=== PATIENT | male | born 1960 | race Caucasian/White ===

== ENCOUNTER 2017-05-22 06:18 | Day surgery (SDC) | payer OTHER ==
[~2017-05-22] VITALS: Ht 182.9 cm; Wt 94.0 kg
[~2017-05-22 06:18] MED LIST: ASPI81TA82 PO; CARV12.52 PO; LORTA10 PO; RAMI5CAP36 PO; SPIR25TA PO; TAMS0.4C67 PO; XARE10TA PO; Z.0.WHEELELR
[2017-05-22] MEDS ORDERED: GABA300C5 PO (06:35)
[2017-05-22] MEDS ORDERED: CORE25TA PO (06:35)
[2017-05-22] MEDS ORDERED: ASPI81CH CHEW (06:35)
[2017-05-22] MEDS ORDERED: SPIR25TA PO (06:35)
[2017-05-22] MEDS ORDERED: RAMI5CAP PO (06:35)
[2017-05-22 06:43] VITALS: BP 161/110; PULSE 98; RESP 16; TEMP 97.9; O2SAT 95
[2017-05-22] MEDS ORDERED: Hold AM Insulin & AM Hypoglycemic medications in diabetic patients PRN (06:45)
[2017-05-22] MEDS ORDERED: NO Heparin, Lovenox, Coumadin at least 12 hours prior to procedure. PRN (06:45)
[2017-05-22] MEDS ORDERED: NS 1000 ML IV SCH (06:45)
[2017-05-22] MEDS ORDERED: VANCOMYCIN 1000 MG/NS 250 ML IV SCH ×2 (06:45)
[2017-05-22] MEDS ORDERED: SODIUM CHLORID 0.9% 500 ML IV PRN (06:45)
[2017-05-22] MEDS ORDERED: POVIDONE IODINE 5% (ANTISEPSIS KIT) 4 APPLICATIONS EACH NARE PRN (06:45)
[2017-05-22] MEDS ORDERED: ceFAZolin 2 GM PREMIX 50 ML IV SCH (06:45)
[2017-05-22] MEDS ORDERED: MUPIROCIN 2% OINT 1 APPLIC/GM SYR NASAL SCH (06:45)
[2017-05-22] MEDS ORDERED: INSULIN HUMAN REGULAR 1,000 UNITS/10 ML VIAL SQ PRN (06:45)
[2017-05-22] MEDS ORDERED: METOPROLOL TARTRATE 25 MG TAB PO PRN (06:45)
[2017-05-22] MEDS ORDERED: CHLORHEXIDINE GLUCONATE 2 % 1 PACK (2 CLOTHS) TOPICAL SCH (06:45)
[2017-05-22] MEDS ORDERED: CHLORHEXIDINE GLUCONATE 2 % 1 PACK (2 CLOTHS) TOPICAL PRN (06:45)
[2017-05-22] MEDS ORDERED: LACTATED RINGER'S 1000 ML IV PRN (06:45)
[2017-05-22] MEDS ORDERED: LORazepam 1 MG TAB SL SCH (06:45)
[2017-05-22] MEDS ORDERED: POVIDONE IODINE 5% (ANTISEPSIS KIT) 4 APPLICATIONS EACH NARE SCH (06:45)
[2017-05-22 07:06] LABS: AUTOMATED NEUTROPHIL # 3.4 TH/MM3 (1.8-7.7); BASOPHIL % 0.8 % (0.0-2.0); EOSINOPHIL # 0.2 TH/MM3 (0-0.4); HEMATOCRIT 47.3 % (39.0-51.0); HEMO FLAGS DIFF FINAL; LYMPH % 20.5 % (9.0-44.0); MEAN CELL VOLUME 100.6 FL (80.0-100.0); MEAN CORPUSCULAR HEMOGLOBIN 34.5 PG (27.0-34.0); MEAN CORPUSCULAR HGB CONC 34.2 % (32.0-36.0); MONO % 8.1 % (0.0-8.0); NEUT % 67.6 % (16.0-70.0); PLATELET COUNT 161 TH/MM3 (150-450); RED CELL DISTRIBUTION WIDTH 14.8 % (11.6-17.2); WHITE BLOOD COUNT 5.1 TH/MM3 (4.0-11.0)
[2017-05-22 07:11] LABS: APTT (PATIENT) 29.2 SEC (24.3-30.1); INTERNATIONAL NORMALIZED RATIO 0.9 RATIO; PROTHROMBIN TIME - PATIENT 9.7 SEC (9.8-11.6)
[2017-05-22 07:18] LABS: BICARBONATE 26.2 MEQ/L (21.0-32.0)
[2017-05-22] MEDS ORDERED: MIDAZOLAM HCL 2 MG/2 ML VIAL ONE ×2 (07:34→07:49)
[2017-05-22] MEDS ORDERED: FAMOTIDINE 20 MG/2 ML VIAL ONE (07:34)
[2017-05-22] MEDS ORDERED: LIDOCAINE HCL 2% 50 ML VIAL ONE (07:45)
[2017-05-22] MEDS ORDERED: VANCOMYCIN 500 MG VIAL ONE (07:45)
[2017-05-22] MEDS ORDERED: HYDR-3366 PO (08:36)
[2017-05-22] MEDS ORDERED: CEPH-460 PO (08:36)
--- NOTE | 2017-05-22 08:43 | CATHPROC ---
[employer] HIS Report Study Information Study Number Admission Scheduled Start Study Start [id number] May 22 2017 6:18AM 05/22/2017 May 22 2017 7:56AM [place] Service Cardiac Pacer/ICD Admit Source Facility Department Other [facility] - Assistant Professor Of Business Physician and Clinical Staff Initial Devon Rea Diagnostic Assistant Maite Tamayo,RT(R) TECH2 Other Anesthesia, MECHANICAL RELIABILITY ENGINEER Other Sree San RCIS(BS) Recorder Candice Garcia,BAILEY Scrub Oumar Hickman,RT(R) Equipment Time Casual Shoe Inspector Description Size Mfg Part Number Used/Scraped 08:24 BIOTRONIK DEFIBRILLATOR, [email or web address] 7 HF-T [id number] Used DERMABOND, ADHESIVE SKIN [id number] 08:00 CORDIS/PACER * Used GLUE MINI *[id number] 08:00 [employer] INDUSTRIES SUTURE, STRIP PLUS 1/2" * Used *[id number] 08:00 MEDLINE PACER GREEN, LIMB * 2530 *[id number] Used [id number] 08:00 MEDLINE PACER PACK, PACER CUSTOM * Used *[id number] 08:28 Needle Sponge Count 1 111 Used 08:27 Needle Sponge Count 1 1 Used 08:28 Needle Sponge Count 25 1 Used SUTURE, 0 ETHIBOND [CT1] ([id number]), 8pk SUTURE, 2-0 VICRYL [CT1] ([id number]) SUTURE, 2-0 VICRYL [CT1] ([id number]) [id number] 08:00 [employer],WARM AIR CCL * Used *[id number] [facility] PAD, ELECTROSURGICAL 08:00 * [id number] *[id number] Used SURGICAL GROUNDING ORANGE 08:05 VITATRON MEDTRONIC PLASMABLADE, PEAD 3.0S * [id number] Used [id number] 08:00 [employer]. ELECTRODE, PRO-PADZ BIPHASIC * Used *[id number] Equipment Model, Serial, Lot Number and Expiration Data Description Model Number Serial Number Lot Number Expiration Da te DEFIBRILLATOR, KIERRA 7 HF-T [id number] 08-10-2017 Medication Medication Total Dose (Bolus/Oral) Medication Total Dosage/Unit 2% XYLOCAINE 50 mL Medications (Bolus/Oral) Medication Time Given Dosage/Unit Administered By Reason 2% XYLOCAINE 05/22/2017 8:12:56 AM 50 mL Devon Nunn 50 mL 2% XYLOCAINE given in lab by Devon Nunn in Left shoulder via Subcutaneous. Ordered by Devon Nunn. LEFT UPPER CHEST Medication (Drip) Medication Time Given Dosage/Unit Concentration/Unit Diluent (ml) Solution ANCEF 05/22/2017 7:41:10 AM 2 g 2 g ANCEF given in lab by Anesthesia, MECHANICAL RELIABILITY ENGINEER via Peripheral IV. Ordered by Devon Nunn. VANCOMYCIN DRIP 05/22/2017 7:41:50 AM 1 g 1 g VANCOMYCIN DRIP given in lab by Anesthesia, MECHANICAL RELIABILITY ENGINEER via Peripheral IV. Ordered by Devon Nunn. Initial Case Assessment Cardiovascular HR Rhythm NIBP Chest Pain 88 SR W/ LBBB 159/99 0 Edema Present Skin color Skin None Normal Warm Dry Circulatory - Right Pulses Dorsalis Pedis 2 Scale (0,1,2,3,4,d) Circulatory - Left Pulses Dorsalis Pedis 2 Scale (0,1,2,3,4,d) Neurological State Oriented to time-place- Alert Moves all extremities person Respiration - General Respiration Rate SpO2 (%) (B/min) 18 98 Final Case Assessment Cardiovascular HR Rhythm NIBP Chest Pain 88 SR 126/88 0 Edema Present Skin color Skin None Normal Warm Dry Circulatory - Right Pulses Dorsalis Pedis 2 Scale (0,1,2,3,4,d) Circulatory - Left Pulses Dorsalis Pedis 2 Scale (0,1,2,3,4,d) Neurological State Oriented to time-place- Alert Moves all extremities person Respiration - General Respiration Rate SpO2 (%) O2 (lpm) (B/min) 18 95 4 Chronological Log Time Study Chronological Log 7:31:00 Patient arrived via Bed. 7:31:00 Anesthesia at bedside. Assumes care of patient. SEE RECORDS FOR ALL MEDS AND VITALS DURING CASE 7:31:15 Patient Name, D.O.B, / Armband Verified By R.N. Assessment: Initial Case, HR=88 BPM, Rhythm=SR W/ LBBB, JYUT=794/99 mmhg, Chest Pain=0, Edema=N one, Color=Normal, Skin = Warm, Dry Right Pulses: Mathew Ped=2 7:34:00 Left Pulses: Mathew Ped=2 Neurological: State=Alert, Ox3, KAUR Respiration: Resp=18 B/min, SpO2=98 % 7:35:00 A # 20 IV was noted in the Antecubital (left). Grade = 0 7:35:50 A # 20 IV was noted in the Antecubital (right). Grade = 0 7:40:00 Verbal Stimulation=2 Physical Stimulation=2 Airway=2 Respiration=2 TOTAL=8. (0=absent, 1=li mited, 2=present) 7:41:10 2 g ANCEF given in lab by Anesthesia, MECHANICAL RELIABILITY ENGINEER via Peripheral IV. Ordered by Devon Nunn. 7:41:50 1 g VANCOMYCIN DRIP given in lab by Anesthesia, MECHANICAL RELIABILITY ENGINEER via Peripheral IV. Ordered by Corin Nunn 7:42:00 Disposable Defibrillator Pads Placed On Patient. 7:42:00 Charelne Prominences Protected 7:45:00 Table restraints applied according to hospital policy 8:00:00 Left Upper Chest Prepped Times Two. 8:00:12 2% CHLORHEXIDINE GLUCONATE WASH AND NASAL SWIPE DONE PRIOR TO PROCEDURE. 8:00:30 Reference ECG taken 8:01:00 Bovie ground pad applied to: RIGHT THIGH First Sponge And Instrument Count Done by Devon Nunn. 8:01:00 Hypo's: 1, Sponges: 25, Bovie/scratch: 1 Sutures: 3, Blades: 1, Instruments: 26, Syveck Patches: ~SYVECK PATCH~ 8:03:00 paged 8:06:17 Patient has been NPO for More than 6Hrs. 8:06:22 Skin Breakdown- NONE PER PATIENT 8:08:50 MD responded Time Out. Correct patient, procedure, procedure equipment, site and side verified with physician present. Time 8:11:10 concurred by MD, individual staff and MECHANICAL RELIABILITY ENGINEER. Time Out #2 - Consents verified, patient in correct position, all results are labled and display ed, safety precautions 8:11:50 taken, antibiotics administered. Time out concurred by MD, individual staff and MECHANICAL RELIABILITY ENGINEER in procedur e 8:12:30 Case Start 50 mL 2% XYLOCAINE given in lab by Devon Nunn in Left shoulder via Subcutaneous. Ordered by Devon Porter. 8:12:56 LEFT UPPER CHEST 8:16:00 Surgical Incision Made. 8:16:02 A pocket was created at the L Upper Chest. 8:21:16 A device was explanted. 8:24:05 Pocket flushed with antibiotic solution 8:24:06 A DEFIBRILLATOR, IMPERIA 7 HF-T was connected and placed in the pocket. 8:24:50 Pocket flushed with antibiotic solution SECOND Sponge And Instrument Count Done by Devon Nunn. 8:26:37 Hypo's: 1, Sponges: 25, Bovie/scratch: 1 Sutures: 3, Blades: 1, Instruments: 26, Syveck Patches: ~SYVECK PATCH~ 8:28:27 The pocket was closed. 8:28:50 Case End 8:29:43 Steri-strips and a sterile dressing applied to site. Assessment: Final Case, HR=88 BPM, Rhythm=SR, WZGF=838/88 mmhg, Chest Pain=0, Edema=None, Color= Normal, Skin = Warm, Dry Right Pulses: Mathew Ped=2 8:30:50 Left Pulses: Mathew Ped=2 Neurological: State=Alert, Ox3, KAUR Respiration: Resp=18 B/min, SpO2=95 %, O2=4 lpm 8:30:52 No case complications noted. 8:30:53 Cine recording checked. 8:30:57 Bedside Report will be given. 8:30:58 Implantable Device card placed in patient's chart. 8:30:59 DOCU called. Spoke to MIGUEL 8:31:37 Implant Procedure was performed. 8:31:42 A Bivent ICD Implant . (Dual) GEN CHANGE First Sponge And Instrument Count Done by Devon Nunn. 8:35:20 Hypo's: 1, Sponges: 25, Bovie/scratch: 1 Sutures: 3, Blades: 1, Instruments: 26, Syveck Patches: ~SYVECK PATCH~ End Study - Contrast Media Used In Study Contrast Total Opened (mL) Total Used (mL) Total Wasted (mL) Unspecified 0 0 0 End Study - Radiation Exposure Fluoro Time (minutes) 0.0 End Study - Patient Disposition Complications Transferred To Interventional Outcome No Telemetry Bed successful
[2017-05-22] MEDS ORDERED: ACETAMINOPHEN/CODEINE 300 MG/30 MG TAB PO PRN ×2 (08:45)
[2017-05-22] MEDS ORDERED: PROPOFOL 200 MG/20 ML AMP IV ONE (09:35)
--- NOTE | 2017-05-22 09:48 | MP ---
cc: FABIO DAVIS M.D. DATE OF SURGERY 05/22/2017 PROCEDURE PERFORMED A biventricular pacer defibrillator removal, biventricular pacer defibrillator replacement. INDICATIONS Mr. Garcia is a 56-year-old gentleman with a history of congestive heart failure, cardiomyopathy, biventricular pacer/ defibrillator inserted on optimal medical management with a generator end of life referred for generator replacement and device testing. This is primary prevention. The risks, the nature and the benefit of the procedure are clearly stated to him. The risks include pneumothorax, cardiac perforation, stroke, need for open heart surgery and even . The patient understood and agreed to proceed. PROCEDURE After written informed consent was obtained, the patient was brought to the EP lab where he was prepped and draped in the usual sterile fashion. Conscious sedation was initiated and maintained throughout the procedure by anesthesiologist. Once sedation verified, the left infraclavicular area over the existing generator was anesthetized with 2% Xylocaine. Using #11 scalpel, a 3-cm incision was made over the existing generator. Dissection was then taken down to the fascial layer using Bovie cautery and blunt dissection. Once exposed, the generator was removed from the pocket. Scar tissue was removed around the lead, pocket was expanded. Pocket revision was performed. Then the lead was disconnected from the generator and tested. After adequate pacing and sensing thresholds were obtained, the pocket was copiously irrigated using antibiotic solution. The leads were connected to a new generator and placed into the pocket. I did proceed with wound closure. Device testing was not performed. The patient very difficult to sedate. The deep fascial layer was approximated with 2-0 Vicryl suture in a continuous fashion. The subcutaneous layer was approximated with 2-0 Vicryl suture in a continuous fashion. The subcuticular layer was approximated using 2-0 Vicryl suture in a continuous fashion. Dermabond adhesive was applied to the wound followed by a sterile pressure dressing. There was no complication. The patient tolerated the procedure. Blood loss minimal. 1. Explanted Hardware: The explanted biventricular pacer defibrillator is a Biotronik model number Lumax 540, serial number [id number]. 2. Implanted Hardware: The implanted biventricular pacer defibrillator is a Biotronik model number 346141, serial number [id number]. 3. Threshold: The right atrial pacing in the bipolar mode was 0.9 volts at 0.4 milliseconds. Lead impedance 180 ohms with P-wave at 3.2 mV. The right ventricular pacing threshold in the bipolar mode was at 0.8 volts at 0.4 milliseconds. Lead impedance 520 ohms, R-wave at 6.4 mV. The left ventricular pacing threshold in the bipolar mode was 1.4-0.4 milliseconds, lead impedance 105 ohms. 4. Settings: The device was set in a DDD 60 upper rate limit 120 beats per minute. LV first by 40 milliseconds, defibrillatory portion for two zones one zone for ventricular tachycardia between 170-250 beats per minute. Initial therapy consists of two bursts of ATP, followed by 20, then 30 and all subsequent shocks at 40 defibrillatory shock. Second zone for ventricular fibrillation above 250 beats per minute first therapy at 30 and all subsequent shocks at 40 defibrillatory shock. CONCLUSION Successful biventricular pacer/defibrillator removal, biventricular pacer defibrillator replacement. COMMENT AND RECOMMENDATIONS The patient is going to be transferred to the recovery room. He will be observed and when stable can be discharged home. MD ORLANDO Borja/RADHA /8:34 AM /9:42 AM
--- NOTE | 2017-05-22 09:57 | EKG ---
Date Performed: 05/22/2017 Time Performed: 07:23:12 PTAGE: 56 years EKG: Sinus rhythm Ventricular pacing. Pacemaker rhythm - no further analysis Abnormal ECG PREVIOUS TRACING : 07/27/2014 04.38 Compared to prior tracing no significant change DOCTOR: Ashley Mittal Interpretating Date/Time 05/22/2017 09:56:41
== END 2017-05-22 09:42 | disposition home or self-care (01) ==
LOC: HDIC 06:18 → HDOC 06:18
PROVIDERS: ATTEND Internal Medicine Interventional Cardiology
DX: Z45.02 Encounter for adjustment and management of automatic implantable cardiac defibrillator (principal); I50.20 Unspecified systolic (congestive) heart failure; I44.7 Left bundle-branch block, unspecified; I42.0 Dilated cardiomyopathy; R42 Dizziness and giddiness; I47.2 Ventricular tachycardia; R06.00 Dyspnea, unspecified; Z79.82 Long term (current) use of aspirin
CPT/HCPCS: 00530; 33264; 80048; 85025; 85610; 85730; 86850; 86900; 86901; 93005; C1882; J2250; J3010; J3370; J7030

== ENCOUNTER 2017-08-06 16:36 | Inpatient (IN) | payer OTHER, MEDICARE ==
[~2017-08-06] VITALS: Ht 182.9 cm; Wt 85.0 kg
[~2017-08-06 16:36] MED LIST changes: +ASPI81CH CHEW; -ASPI81TA82 PO; -CARV12.52 PO; +CEPH-460 PO; +CORE25TA PO; +GABA300C5 PO; +HYDR-3366 PO; -LORTA10 PO; +RAMI5CAP PO; -RAMI5CAP36 PO; -TAMS0.4C67 PO; -XARE10TA PO; -Z.0.WHEELELR
[2017-08-06 16:40] VITALS: BP 164/93; PULSE 90; RESP 18; TEMP 98.2; O2SAT 98
--- NOTE | 2017-08-06 16:44 | PD ---
Physical Exam Time Seen by Provider: 16:42 Narrative 56-year-old male requesting detox for alcohol. Last drink 3 hours ago. He gave his his hand gun last night because was having thoughts of suicide. Denies current thoughts of suicide. Denies illicit drug use. Patient seen in triage. Vital signs reviewed. Patient taken to medical bed. Data Data Last Documented VS Vital Signs Date Time Temp Pulse Resp B/P (MAP) Pulse Ox O2 Delivery O2 Flow Rate FiO2 08/06/17 16:40 98.2 90 18 164/93 (116) 98 MDM Supervised Visit with VALDEZ: Kassandra Bah Aug 06, 2017 16:44
--- NOTE | 2017-08-06 16:57 | PD ---
HPI . Wants detox/suicide ideation Chief Complaint: Alcohol/Drug Intoxication Time Seen by Provider: 16:53 Travel History International Travel<30 days: No Contact w/Intl Traveler<30days: No Traveled to known affect area: No History of Present Illness HPI 56-year-old male with no significant past medical history other than alcohol abuse for over 30 something years here with request for detox. Patient also says that he's had some suicidal ideation over the past several weeks. He says that most recently had to get his gun to his , because he was thinking of harming himself. Today he says he is not necessarily suicidal, however he has thought about it in the past. He has no other complaints and just wants help for his drinking problems. PFSH Past Medical History Heart Rhythm Problems: Yes Cancer: No Cardiovascular Problems: Yes High Cholesterol: No Chest Pain: No Congestive Heart Failure: No Diabetes: No Endocrine: No Gastrointestinal Disorders: No Glaucoma: No Genitourinary: No Hepatitis: No Hiatal Hernia: No Hypertension: Yes Immune Disorder: No Musculoskeletal: Yes (PERTHES DISEASE (UNSURE WHICH FEMUR)) Neurologic: No Psychiatric: No Reproductive: No Respiratory: No Integumentary: No Thyroid Disease: No Past Surgical History Abdominal Surgery: Yes (HERNIA REPAIR) AICD: Yes Body Medical Devices: aicd 12/13/2011 Cardiac Surgery: Yes (AICD PLACEMENT) Pacemaker: No Thoracic Surgery: No Social History Alcohol Use: Yes Tobacco Use: No Substance Use: No Allergies-Medications (Allergen,Severity, Reaction): Coded Allergies: codeine (Unverified Allergy, Severe, 06/25/17) Reported Meds & Prescriptions Reported Meds & Active Scripts Active Keflex (Cephalexin) 500 Mg Capsule 500 Mg PO TID [place] (Hydrocodone-Acetaminophen) 10-325 Mg Tab 1 Tab PO Q6H PRN Reported Spironolactone 25 Mg Tab 25 Mg PO BIDPC Ramipril 5 Mg Cap 5 Mg PO DAILY Gabapentin 300 Mg Cap 300 Mg PO BID Coreg (Carvedilol) 25 Mg Tab 25 Mg PO BID Aspirin 81 Mg Chew 81 Mg CHEW DAILY Review of Systems General / Constitutional: No: Fever Eyes: No: Visual changes HENT: No: Headaches Cardiovascular: No: Chest Pain or Discomfort Respiratory: No: Shortness of Breath Gastrointestinal: No: Abdominal Pain Genitourinary: No: Dysuria Musculoskeletal: No: Pain Skin: No Rash Neurologic: No: Weakness Psychiatric: Positive: Suicidal Ideations, No: Depression Endocrine: No: Polydipsia Hematologic/Lymphatic: No: Easy Bruising Physical Exam Narrative GENERAL: AAO x 3, no acute distress, Well-nourished, well-developed patient. SKIN: Warm and dry. No visible rashes or bruising. HEAD: Normocephalic and atraumatic. EYES: No scleral icterus. No injection or drainage. EOM intact, PERRLA ENT: No nasal drainage noted. Mucous membranes pink. Airway patent. NECK: Supple, trachea midline. No JVD. CARDIOVASCULAR: Regular rate and rhythm without murmurs, gallops, or rubs. RESPIRATORY: Breath sounds equal bilaterally. No accessory muscle use. No rhonchi or rales. GASTROINTESTINAL: Abdomen soft, non-tender, nondistended. EXTREMITIES: No cyanosis or edema. BACK: No obvious deformity. NEURO: CN II-12 intact, lithographic press feeder strength normal b/l, UE and LE 5/5, no focal deficits PSYCH: AAO x 3, normal affect. Data Data Last Documented VS Vital Signs Date Time Temp Pulse Resp B/P (MAP) Pulse Ox O2 Delivery O2 Flow Rate FiO2 08/06/17 17:13 Room Air 08/06/17 16:40 98.2 90 18 164/93 (116) 98 Orders Orders Complete Blood Count With Diff (08/06/17 16:57) Comprehensive Metabolic Panel (08/06/17 16:57) Psych Screen (08/06/17 16:57) Drug Screen, Random Urine (08/06/17 16:57) Alcohol (Ethanol) (08/06/17 16:57) Labs Laboratory Tests Test 08/06/17 17:11 08/06/17 17:15 White Blood Count 4.5 TH/MM3 Red Blood Count 4.64 MIL/MM3 Hemoglobin 17.3 GM/DL Hematocrit 48.8 % Mean Corpuscular Volume 105.3 FL Mean Corpuscular Hemoglobin 37.3 PG Mean Corpuscular Hemoglobin Concent 35.5 % Red Cell Distribution Width 12.8 % Platelet Count 143 TH/MM3 Mean Platelet Volume 7.9 FL Neutrophils (%) (Auto) 60.2 % Lymphocytes (%) (Auto) 23.9 % Monocytes (%) (Auto) 11.2 % Eosinophils (%) (Auto) 3.4 % Basophils (%) (Auto) 1.3 % Neutrophils # (Auto) 2.7 TH/MM3 Lymphocytes # (Auto) 1.1 TH/MM3 Monocytes # (Auto) 0.5 TH/MM3 Eosinophils # (Auto) 0.2 TH/MM3 Basophils # (Auto) 0.1 TH/MM3 CBC Comment AUTO DIFF Differential Total Cells Counted 100 Neutrophils % (Manual) 73 % Lymphocytes % 13 % Monocytes % 7 % Eosinophils % 5 % Basophils % 2 % Neutrophils # (Manual) 3.3 TH/MM3 Differential Comment FINAL DIFF MANUAL Atypical Lymphocytes % Platelet Estimate LOW Platelet Morphology Comment NORMAL Blood Urea Nitrogen 8 MG/DL Creatinine 0.95 MG/DL Random Glucose 82 MG/DL Total Protein 7.4 GM/DL Albumin 4.1 GM/DL Calcium Level 8.2 MG/DL Alkaline Phosphatase 124 U/L Aspartate Amino Transf (AST/SGOT) 111 U/L Alanine Aminotransferase (ALT/SGPT) 93 U/L Total Bilirubin 0.6 MG/DL Sodium Level 139 MEQ/L Potassium Level 3.6 MEQ/L Chloride Level 106 MEQ/L Carbon Dioxide Level 23.4 MEQ/L Anion Gap 10 MEQ/L Estimat Glomerular Filtration Rate 82 ML/MIN Ethyl Alcohol Level 295 MG/DL Urine Opiates Screen NEG Urine Barbiturates Screen NEG Urine Amphetamines Screen NEG Urine Benzodiazepines Screen NEG Urine Cocaine Screen NEG Urine Cannabinoids Screen NEG MDM Medical Decision Making Medical Screen Exam Complete: Yes Emergency Medical Condition: Yes Medical Record Reviewed: Yes Differential Diagnosis suicide ideation, drug induced mood disorder, alcohol abuse, Narrative Course 56 yr old male here with c/o alcohol abuse problems and suicide ideation. I have ordered labs. If they are WNL, we will medically clear his for psych screen. Laboratory Tests Test 08/06/17 17:11 08/06/17 17:15 White Blood Count 4.5 TH/MM3 Red Blood Count 4.64 MIL/MM3 Hemoglobin 17.3 GM/DL Hematocrit 48.8 % Mean Corpuscular Volume 105.3 FL Mean Corpuscular Hemoglobin 37.3 PG Mean Corpuscular Hemoglobin Concent 35.5 % Red Cell Distribution Width 12.8 % Platelet Count 143 TH/MM3 Mean Platelet Volume 7.9 FL Neutrophils (%) (Auto) 60.2 % Lymphocytes (%) (Auto) 23.9 % Monocytes (%) (Auto) 11.2 % Eosinophils (%) (Auto) 3.4 % Basophils (%) (Auto) 1.3 % Neutrophils # (Auto) 2.7 TH/MM3 Lymphocytes # (Auto) 1.1 TH/MM3 Monocytes # (Auto) 0.5 TH/MM3 Eosinophils # (Auto) 0.2 TH/MM3 Basophils # (Auto) 0.1 TH/MM3 CBC Comment AUTO DIFF Differential Total Cells Counted 100 Neutrophils % (Manual) 73 % Lymphocytes % 13 % Monocytes % 7 % Eosinophils % 5 % Basophils % 2 % Neutrophils # (Manual) 3.3 TH/MM3 Differential Comment FINAL DIFF MANUAL Atypical Lymphocytes % Platelet Estimate LOW Platelet Morphology Comment NORMAL Blood Urea Nitrogen 8 MG/DL Creatinine 0.95 MG/DL Random Glucose 82 MG/DL Total Protein 7.4 GM/DL Albumin 4.1 GM/DL Calcium Level 8.2 MG/DL Alkaline Phosphatase 124 U/L Aspartate Amino Transf (AST/SGOT) 111 U/L Alanine Aminotransferase (ALT/SGPT) 93 U/L Total Bilirubin 0.6 MG/DL Sodium Level 139 MEQ/L Potassium Level 3.6 MEQ/L Chloride Level 106 MEQ/L Carbon Dioxide Level 23.4 MEQ/L Anion Gap 10 MEQ/L Estimat Glomerular Filtration Rate 82 ML/MIN Ethyl Alcohol Level 295 MG/DL Urine Opiates Screen NEG Urine Barbiturates Screen NEG Urine Amphetamines Screen NEG Urine Benzodiazepines Screen NEG Urine Cocaine Screen NEG Urine Cannabinoids Screen NEG labs reviewed. Patient will be cleared for psych screen. Diagnosis Primary Impression: Suicide ideation Condition: Stable Pippa Hernandez Aug 06, 2017 16:57
[2017-08-06 17:42] LABS: AUTOMATED NEUTROPHIL # 2.7 TH/MM3 (1.8-7.7); BASOPHIL # 0.1 TH/MM3 (0-0.2); BASOPHIL % 1.3 % (0.0-2.0); EOSINOPHIL # 0.2 TH/MM3 (0-0.4); EOSINOPHIL % 3.4 % (0.0-4.0); HEMATOCRIT 48.8 % (39.0-51.0); LYMPH % 23.9 % (9.0-44.0); LYMPHOCYTE # 1.1 TH/MM3 (1.0-4.8); MEAN CELL VOLUME 105.3 FL (80.0-100.0); MEAN CORPUSCULAR HEMOGLOBIN 37.3 PG (27.0-34.0); MEAN CORPUSCULAR HGB CONC 35.5 % (32.0-36.0); MONO % 11.2 % (0.0-8.0); NEUT % 60.2 % (16.0-70.0); PLATELET COUNT 143 TH/MM3 (150-450); RED BLOOD COUNT 4.64 MIL/MM3 (4.50-5.90); RED CELL DISTRIBUTION WIDTH 12.8 % (11.6-17.2); WHITE BLOOD COUNT 4.5 TH/MM3 (4.0-11.0)
[2017-08-06 17:52] LABS: ANION GAP 10 MEQ/L (5-15); AST (GOT) 111 U/L (15-37); BICARBONATE 23.4 MEQ/L (21.0-32.0); BLOOD UREA NITROGEN 8 MG/DL (7-18); CHLORIDE 106 MEQ/L (98-107); GLOMERULAR FILTRATION RATE 82 ML/MIN (>89); POTASSIUM 3.6 MEQ/L (3.5-5.1); SODIUM (NA) 139 MEQ/L (136-145)
[2017-08-06 17:53] LABS: ALT (GPT) 93 U/L (12-78)
[2017-08-06 17:54] LABS: HEMO FLAGS AUTO DIFF
[2017-08-06 17:56] LABS: ALKALINE PHOSPHATASE 124 U/L (45-117); TOTAL BILIRUBIN ADULT 0.6 MG/DL (0.2-1.0)
[2017-08-06 17:59] LABS: ALCOHOL 295 MG/DL (0-5)
[2017-08-06 18:52] LABS: BASOPHILS 2 % (0-2); EOSINOPHILS 5 % (0-4); NEUTROPHIL # MANUAL DIFF 3.3 TH/MM3 (1.8-7.7); POLYS (SEG NEUTROPHILS) 73 % (16-70); WBC DIFF SAMPLE 100
[2017-08-06 18:58] LABS: PLATELET ESTIMATE SMEAR LOW (NORMAL); PLATELET MORPHOLOGY NORMAL (NORMAL); SCAN/DIFF FINAL DIFF MANUAL
[2017-08-06] MEDS ORDERED: FLUMAZENIL 0.5 MG/5 ML VIAL IV PUSH PRN (22:30)
[2017-08-06] MEDS ORDERED: LORazepam 2 MG/ML VIAL IV PUSH PRN ×4 (22:30)
[2017-08-06] MEDS ORDERED: LORazepam 1 MG TAB PO PRN (22:30)
[2017-08-06] MEDS ORDERED: RAMIPRIL 5 MG CAP PO ONE (22:30)
[2017-08-06] MEDS ORDERED: CARVEDILOL 12.5 MG TAB PO ONE (22:30)
[2017-08-06] MEDS ORDERED: ONDANSETRON ODT 4 MG TAB PO ONE (22:30)
[2017-08-06] MEDS: LORazepam 2 MG TAB PO PRN (22:37)
[2017-08-07] VITALS (7 sets, daily range): BP systolic 137–167; BP diastolic 80–98; PULSE 71–97; RESP 18; TEMP 98.2–98.7; O2SAT 95–97
[2017-08-07] MEDS ORDERED: CARVEDILOL 12.5 MG TAB PO ONE (10:00)
[2017-08-07] MEDS: LORazepam 2 MG TAB PO PRN ×3 (11:08→17:28)
[2017-08-07] MEDS ORDERED: ACETAMINOPHEN 325 MG TAB PO PRN (11:30)
[2017-08-07] MEDS ORDERED: SODIUM CHLORIDE 0.9% FLUSH 10 ML FLUSH IV FLUSH PRN (11:30)
[2017-08-07] MEDS ORDERED: MAGNESIUM HYDROXIDE SUSP 30 ML CUP PO PRN (11:30)
[2017-08-07] MEDS ORDERED: FLUMAZENIL 0.5 MG/5 ML VIAL IV PUSH PRN (11:30)
[2017-08-07] MEDS ORDERED: LORazepam 2 MG/ML VIAL IV PUSH PRN ×4 (11:30)
[2017-08-07] MEDS ORDERED: ALUMINUM/MAGNESIUM/SIMETH 30 ML CUP PO PRN (11:30)
--- NOTE | 2017-08-07 11:45 | HHI.HP ---
Provisional Diagnosis Admission Date [place]. Adjustment disorder with depressed mood Certification of Person's Competence To Provide Express and Informed Consent I have personally examined Mikal Saxena , a person being served at [facility] on, Aug 07, 2017 11:36. Express and informed consent means consent voluntarily given in writing, by a competent person, after sufficient explanation and disclosure of the subject matter involved to enable the person to make a knowing and willful decision without any element of force, fraud, deceit, duress, or other form of constraint or coercion. This person is 18 years of age or older, is not now known to be incompetent to consent to treatment with a guardian advocate, and does not have a health care surrogate or proxy currently making medical treatment decisions. I have found this person to be one of the following: [x] Competent to provide express and informed consent, as defined above, for voluntary admission to this facility and is competent to provide express and informed consent for treatment. He/she has the consistent capacity to make well reasoned, willful, and knowing decisions concerning his or her medical or mental health treatment. The person fully and consistently understands the purpose of the admission for examination/placement and is fully capable of personally exercising all rights assured under [place] Incompetent to provide express and informed consent to voluntary admission, and this is incompetent to provide express and informed consent to treatment. The person must be transferred to involuntary status and a petition for a guardian advocate filed with the Circuit Court. [] Refusing to provide express and informed consent to voluntary admission but is competent to provide express and informed consent for treatment. The person must be discharged or transferred to involuntary status. Form shall be completed within 24 hours of a person's arrival at the receiving facility and filed in the clinical record of each person: 1. Admitted on a voluntary basis 2. Permitted to provide express and informed consent to his/her own treatment 3. Allowed to transfer from involuntary to voluntary status 4. Prior to permitting a person to consent to his or her own treatment after having been previously found incompetent to consent to treatment. History of Present Illness Capacity: Has Capacity HPI 56-year-old male presents voluntarily with multiple symptoms of depression and suicidality with plan. Patient has been thinking of shooting himself over the last several weeks and became so concerned, he gave his gun to his . Patient continues to have suicidal thoughts intermittently and unpredictably. He would like treatment for his depressive symptoms. Stressors at this time are financial, unemployment, marital discord, etc. Patient presents with a 3 month history of symptoms including depressed mood, anhedonia, diminished energy , anxiety, insomnia, appetite loss, feeling hopeless and helpless, diminished self-esteem, social withdrawal, diminished concentration, and suicidal ideation with plan. Patient has been drinking intermittently to self medicate his symptoms of depression and anxiety and it is not working but rather making his depression worse. Patient reports he is unable to contract for safety at this time. Review of Systems Except as stated in HPI: all other systems reviewed are Neg Past Psych History Psychological trauma history Denies Violence risk - others (6 mos) Minimal to moderate Violence risk - self (6 mos) High Substance Abuse History Drugs/Alcohol past 12 months Patient has been abusing alcohol intermittently, unpredictably and to varying degrees for years. Past Family Social History Coded Allergies: codeine (Unverified Allergy, Severe, 06/25/17) Reported Medications Spironolactone (Spironolactone) 25 Mg Tab, 25 MG PO EVERY OTHER DAY, #60 TAB 0 Refills 05/22/17 Ramipril (Ramipril) 5 Mg Cap, 5 MG PO DAILY, #30 CAP 0 Refills 05/22/17 Carvedilol (Coreg) 25 Mg Tab, 25 MG PO BID, #60 TAB 0 Refills 05/22/17 Aspirin (Aspirin) 81 Mg Chew, 81 MG CHEW DAILY, TAB 0 Refills 05/22/17 Discontinued Reported Medications Gabapentin (Gabapentin) 300 Mg Cap, 300 MG PO BID, #60 CAP 0 Refills 05/22/17 Discontinued Scripts Cephalexin (Keflex) 500 Mg Capsule, 500 MG PO TID for Infection, #9 CAP 0 Refills Prov:Devon Nunn MD 05/22/17 Hydrocodone-Acetaminophen ([place]) 10-325 Mg Tab, 1 TAB PO Q6H Y for PAIN, #30 TAB 0 Refills Prov:Devon Nunn MD 05/22/17 Current Medications Medications (Trade) Dose Ordered Sig/Julian Route Start Time Stop Time Status Last Admin (Romazicon Inj) 0.2 mg Q1M PRN IV PUSH 08/06/17 22:30 (Ativan) 1 mg Q4H PRN PO 08/06/17 22:30 08/07/17 05:39 (Ativan Inj) 1 mg Q4H PRN IV PUSH 08/06/17 22:30 (Ativan) 2 mg Q2H PRN PO 08/06/17 22:30 08/07/17 11:08 (Ativan Inj) 2 mg Q2H PRN IV PUSH 08/06/17 22:30 (Ativan Inj) 2 mg Q1H PRN IV PUSH 08/06/17 22:30 (Ativan Inj) 2 mg Q15M PRN IV PUSH 08/06/17 22:30 Family History Positive for mood and anxiety disorders. Social History Patient currently unemployed. Has financial stress. Still and lives with his . He does own a handgun. Abusing alcohol. Patient's Strengths (min. 2) Verbal and has access to healthcare. Physical Exam GENERAL: SKIN: Warm and dry. HEAD: Normocephalic. EYES: No scleral icterus. No injection or drainage. NECK: Supple, trachea midline. No JVD or lymphadenopathy. CARDIOVASCULAR: Regular rate and rhythm without murmurs, gallops, or rubs. RESPIRATORY: Breath sounds equal bilaterally. No accessory muscle use. GASTROINTESTINAL: Abdomen soft, non-tender, nondistended. MUSCULOSKELETAL: No cyanosis, or edema. BACK: Nontender without obvious deformity. No CVA tenderness. Vital Signs Vital Signs Date Time Temp Pulse Resp B/P (MAP) Pulse Ox O2 Delivery O2 Flow Rate FiO2 08/07/17 10:12 97 18 161/89 (113) 97 Room Air 08/06/17 16:40 98.2 Lab Results Test 08/06/17 17:11 08/06/17 17:15 White Blood Count 4.5 TH/MM3 Red Blood Count 4.64 MIL/MM3 Hemoglobin 17.3 GM/DL Hematocrit 48.8 % Mean Corpuscular Volume 105.3 FL Mean Corpuscular Hemoglobin 37.3 PG Mean Corpuscular Hemoglobin Concent 35.5 % Red Cell Distribution Width 12.8 % Platelet Count 143 TH/MM3 Mean Platelet Volume 7.9 FL Neutrophils (%) (Auto) 60.2 % Lymphocytes (%) (Auto) 23.9 % Monocytes (%) (Auto) 11.2 % Eosinophils (%) (Auto) 3.4 % Basophils (%) (Auto) 1.3 % Neutrophils # (Auto) 2.7 TH/MM3 Lymphocytes # (Auto) 1.1 TH/MM3 Monocytes # (Auto) 0.5 TH/MM3 Eosinophils # (Auto) 0.2 TH/MM3 Basophils # (Auto) 0.1 TH/MM3 CBC Comment AUTO DIFF Differential Total Cells Counted 100 Neutrophils % (Manual) 73 % Lymphocytes % 13 % Monocytes % 7 % Eosinophils % 5 % Basophils % 2 % Neutrophils # (Manual) 3.3 TH/MM3 Differential Comment FINAL DIFF MANUAL Atypical Lymphocytes % Platelet Estimate LOW Platelet Morphology Comment NORMAL Blood Urea Nitrogen 8 MG/DL Creatinine 0.95 MG/DL Random Glucose 82 MG/DL Total Protein 7.4 GM/DL Albumin 4.1 GM/DL Calcium Level 8.2 MG/DL Alkaline Phosphatase 124 U/L Aspartate Amino Transf (AST/SGOT) 111 U/L Alanine Aminotransferase (ALT/SGPT) 93 U/L Total Bilirubin 0.6 MG/DL Sodium Level 139 MEQ/L Potassium Level 3.6 MEQ/L Chloride Level 106 MEQ/L Carbon Dioxide Level 23.4 MEQ/L Anion Gap 10 MEQ/L Estimat Glomerular Filtration Rate 82 ML/MIN Ethyl Alcohol Level 295 MG/DL Urine Opiates Screen NEG Urine Barbiturates Screen NEG Urine Amphetamines Screen NEG Urine Benzodiazepines Screen NEG Urine Cocaine Screen NEG Urine Cannabinoids Screen NEG Mental Status Examination Speech: Unremarkable Orientation: x3 Memory: Unremarkable Thought Process: Organized, Goal Directed Thought Content: Unremarkable Hallucination Type: None Attention and Concentration: Good Suicidal Ideation: Yes Previous Suicide Attempts: No Homicidal Ideation: No Previous Homicide Attempts: No Insight: Fair Judgment: WNL Affect: Anxious, Sad Mood: Sad, Anxious Motor Activity: Normal gait Assessment & Plan Problem List: (1) Adjustment disorder with depressed mood ICD Codes: F43.21 - Adjustment disorder with depressed mood Status: Acute Assessment & Plan Estimated LOS: days 56-year-old male with increasing depression and suicidality over the last 3 months. Has a plan to shoot himself and the means to do so, as he owns a handgun. Patient felt to be at great danger of self- harm and being admitted for further evaluation and treatment. This physician is ordering a CBC and comprehensive metabolic panel to determine if any infectious process or metabolic process is causing or contributing to his depression. Furthermore, this physician is ordering thyroid stimulating hormone levels, vitamin B-12 levels and vitamin D levels to determine if any deficiencies in these areas is causing or contributing to his depression. He will also receive an EKG to determine his cardiac conduction status prior to instituting psychotropic medicines which may adversely affect his cardiac conduction. He was started on the CIWA protocol to ensure he does not go through withdrawal from alcohol without protective medicines. This physician spoke with the patient's nurse, Mati, regarding his presentation and care. This physician will also ask case management to become involved to speak with the patient's and assist with information gathering as well as disposition planning. Yonas Mcnamara MD Aug 07, 2017 11:44
[2017-08-07] MEDS: SODIUM CHLORIDE 0.9% FLUSH 10 ML FLUSH IV FLUSH SCH (21:00)
[2017-08-07] MEDS: CARVEDILOL 12.5 MG TAB PO SCH (21:34)
[2017-08-07] MEDS: LORazepam 1 MG TAB PO PRN (21:38)
[2017-08-08] MEDS: LORazepam 2 MG TAB PO PRN ×5 (02:22→20:50)
[2017-08-08 05:32] VITALS: BP 166/98; PULSE 80; RESP 17; TEMP 97.6; O2SAT 95
--- NOTE | 2017-08-08 08:13 | EKG ---
Date Performed: 08/08/2017 Time Performed: 07:26:28 PTAGE: 56 years EKG: ELECTRONIC VENTRICULAR PACEMAKER ABNORMAL RHYTHM ECG Since PREVIOUS TRACING , no significant change noted PREVIOUS TRACIN05/22/2017 07.23 DOCTOR: Erica Forbes Interpretating Date/Time 08/08/2017 08:11:16
[2017-08-08] MEDS: RAMIPRIL 5 MG CAP PO SCH (08:56)
[2017-08-08] MEDS: ASPIRIN 81 MG CHEW TAB CHEW SCH (08:56)
[2017-08-08] MEDS: CARVEDILOL 12.5 MG TAB PO SCH ×2 (08:56→20:50)
[2017-08-08] MEDS: SODIUM CHLORIDE 0.9% FLUSH 10 ML FLUSH IV FLUSH SCH ×2 (09:00→20:57)
--- NOTE | 2017-08-08 09:07 | PD.CONS ---
HPI Service [facility] ([place], [place])ists Consult Requested By Psychiatry team Reason for Consult EtOH, assist with management and evaluation. Primary Care Physician Berlin Herrera DO Diagnoses: History of Present Illness Patient is a 56-year-old male with primary medical history of hypertension who came into the hospital requesting for alcohol detoxification. Patient states that he has an ongoing alcohol use for 5 more than 30 years. States that it's been on and off that he wanted to quit drinking. States that he usually starts with beer and then whiskey and would finish a bottle of whiskey daily. He has tried to quit and was able to quit on and off, longest was for a year but then has to go back again to drinking. Patient reports recently he for about 2 months. Reports nausea, no vomiting. Reports tremors, but states it has improved. Patient states he is not ready for the real world and wants to transition to a detox facility like [facility] for about a month to get ready when he goes back home. His ex- continues to live in their home and is "willing to support 100% if he seeks help." Denies any SI/HI. Denies pain and discomfort. Denies SOB/ dyspnea. Denies chest pain , palpitations. Denies fevers, chills, v/d. Denies hematuria, dysuria. Review of Systems Except as stated in HPI: all other systems reviewed are Neg Past Family Social History Allergies: Coded Allergies: codeine (Unverified Allergy, Severe, 06/25/17) Past Medical History HTN VT Past Surgical History Biventricular AICD - batteries were replaced months ago by Dr. Nunn Left surgery Hernia repair Right knee surgery Reported Medications Reported Meds & Active Scripts Active Reported Spironolactone 25 Mg Tab 25 Mg PO EVERY OTHER DAY Ramipril 5 Mg Cap 5 Mg PO DAILY Coreg (Carvedilol) 25 Mg Tab 25 Mg PO BID Aspirin 81 Mg Chew 81 Mg CHEW DAILY Active Ordered Medications Current Medications Medications (Trade) Dose Ordered Sig/Julian Route Start Time Stop Time Status Last Admin (Tylenol) 650 mg Q4H PRN PO 08/07/17 11:30 (Milk Of Magnesia Liq) 30 ml DAILY PRN PO 08/07/17 11:30 (Mag-Al Plus Susp Liq) 30 ml Q6H PRN PO 08/07/17 11:30 (NS Flush) 2 ml UNSCH PRN IV FLUSH 08/07/17 11:30 (NS Flush) 2 ml BID IV FLUSH 08/07/17 21:00 (Romazicon Inj) 0.2 mg Q1M PRN IV PUSH 08/07/17 11:30 (Ativan) 1 mg Q4H PRN PO 08/07/17 11:30 08/07/17 21:38 (Ativan Inj) 1 mg Q4H PRN IV PUSH 08/07/17 11:30 (Ativan) 2 mg Q2H PRN PO 08/07/17 11:30 08/08/17 05:18 (Ativan Inj) 2 mg Q2H PRN IV PUSH 08/07/17 11:30 (Ativan Inj) 2 mg Q1H PRN IV PUSH 08/07/17 11:30 (Ativan Inj) 2 mg Q15M PRN IV PUSH 08/07/17 11:30 (Aspirin Chew) 81 mg DAILY CHEW 08/08/17 09:00 08/08/17 08:56 (Coreg) 25 mg BID PO 08/07/17 21:00 08/08/17 08:56 (Altace) 5 mg DAILY PO 08/08/17 09:00 08/08/17 08:56 (Aldactone) 25 mg EVERY OTHER DAY PO 08/09/17 09:00 (Folate) 1 mg DAILY PO 08/08/17 09:15 UNV (Vitamin B1) 100 mg DAILY PO 08/08/17 09:15 UNV Family History Mother had cancer and Parkinson's disease Social History Alcohol abuse Denies tobacco use Denies illicit use Physical Exam Vital Signs Vital Signs Date Time Temp Pulse Resp B/P (MAP) Pulse Ox O2 Delivery O2 Flow Rate FiO2 08/08/17 05:32 97.6 80 17 166/98 (120) 95 08/07/17 17:51 98.2 82 18 167/98 (121) 96 08/07/17 14:27 98.7 71 18 155/91 (112) 95 08/07/17 12:46 08/07/17 12:45 82 18 143/80 (101) Room Air 08/07/17 12:43 82 18 143/80 (101) Room Air 08/07/17 10:12 97 18 161/89 (113) 97 Room Air 08/07/17 09:44 97 18 161/89 (113 97 Room Air Physical Exam GENERAL: This is a well-nourished, well-developed patient, in no apparent distress. SKIN: No rashes, ecchymoses or lesions. Warm and dry. HEAD: Atraumatic. Normocephalic. EYES: Pupils equal round and reactive. Extraocular motions intact. No scleral icterus. No injection or drainage. ENT: Nose without bleeding. Throat without erythema. Airway patent. NECK: Trachea midline. No JVD or lymphadenopathy. Supple, nontender, no meningeal signs. CARDIOVASCULAR: Regular rate and rhythm without murmurs, gallops, or rubs. Left subclavian AICD incision site scar CDI. RESPIRATORY: Clear to auscultation. Breath sounds equal bilaterally. No wheezes , rales, or rhonchi. GASTROINTESTINAL: Abdomen soft, non-tender, nondistended. Bowel sounds active 4. MUSCULOSKELETAL: Extremities without clubbing, cyanosis, or edema. NEUROLOGICAL: Awake and alert. Mild bilateral hand tremors. Motor and sensory grossly within normal limits. Normal speech. Result Diagram: 08/06/17 1711 08/06/17 1711 Assessment and Plan Assessment and Plan Patient is a 56-year-old male with primary medical history of hypertension who came into the hospital requesting for alcohol detoxification. Admitted to medical psychiatry unit for further evaluation. Consulted for medical management. Suicidal ideation - Managed by psychiatry team EtOH - [facility] protocol - Folic acid, thiamine daily - Pantoprazole daily - Discussed with patient and nursing possible transition to [facility], we'll have case management facilitate. Elevated LFTs Transaminitis - Counselled on Alcohol use - Trend Liver enzymes - Ultrasound if continues to be elevated. HTN History of VT - Continue with home medication ramipril, Coreg, Aldactone - Monitor BP trend DVT prop ambulatory, low risk Code Status Full Code Discussed Condition With Patient, nursing, Rin Serra Aug 08, 2017 09:07
[2017-08-08] MEDS: FOLIC ACID 1 MG TAB PO SCH (10:00)
[2017-08-08] MEDS: PANTOPRAZOLE SOD 20 MG DELAYED RELEASE TAB PO SCH (10:00)
[2017-08-08] MEDS: THIAMINE HCL 100 MG TAB PO SCH (10:00)
[2017-08-08 11:30] LABS: AUTOMATED NEUTROPHIL # 3.3 TH/MM3 (1.8-7.7); BASOPHIL % 0.7 % (0.0-2.0); EOSINOPHIL # 0.1 TH/MM3 (0-0.4); EOSINOPHIL % 3.1 % (0.0-4.0); HEMATOCRIT 49.5 % (39.0-51.0); HEMO FLAGS DIFF FINAL; LYMPH % 12.3 % (9.0-44.0); LYMPHOCYTE # 0.6 TH/MM3 (1.0-4.8); MEAN CORPUSCULAR HEMOGLOBIN 37.3 PG (27.0-34.0); MEAN CORPUSCULAR HGB CONC 35.5 % (32.0-36.0); MONO % 10.5 % (0.0-8.0); NEUT % 73.4 % (16.0-70.0); PLATELET COUNT 123 TH/MM3 (150-450); RED BLOOD COUNT 4.72 MIL/MM3 (4.50-5.90); RED CELL DISTRIBUTION WIDTH 12.7 % (11.6-17.2); WHITE BLOOD COUNT 4.5 TH/MM3 (4.0-11.0)
[2017-08-08 12:00] LABS: ALT (GPT) 73 U/L (12-78); ANION GAP 9 MEQ/L (5-15); AST (GOT) 65 U/L (15-37); BICARBONATE 25.4 MEQ/L (21.0-32.0); BLOOD UREA NITROGEN 10 MG/DL (7-18); CHLORIDE 103 MEQ/L (98-107); GLOMERULAR FILTRATION RATE 86 ML/MIN (>89); POTASSIUM 3.6 MEQ/L (3.5-5.1); SODIUM (NA) 137 MEQ/L (136-145)
[2017-08-08] MEDS: DULoxetine HCl DR 20 MG CAP PO SCH ×2 (12:15→20:50)
[2017-08-08 12:22] LABS: ALKALINE PHOSPHATASE 120 U/L (45-117); HDL CHOLESTEROL 98.9 MG/DL (40.0-60.0); LDL CHOLESTEROL 49 MG/DL (0-99); TOTAL BILIRUBIN ADULT 0.9 MG/DL (0.2-1.0)
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
[2017-08-08 16:39] LABS: HEMOGLOBIN A1b 0.6 %; HEMOGLOBIN Ao 86.4 %; HEMOGLOBIN F 0.6 %; HEMOGLOBIN LA1C 2.2 %; HEMOGLOBIN P3 3.4 %
[2017-08-08 17:29] VITALS: BP 140/90; PULSE 87; RESP 18; TEMP 98.1; O2SAT 96
[2017-08-09 04:54] VITALS: BP 142/86; PULSE 88; RESP 16; TEMP 98.2; O2SAT 94
[2017-08-09] MEDS: DULoxetine HCl DR 20 MG CAP PO SCH ×2 (08:43→22:04)
[2017-08-09] MEDS: FOLIC ACID 1 MG TAB PO SCH (08:44)
[2017-08-09] MEDS: ASPIRIN 81 MG CHEW TAB CHEW SCH (08:44)
[2017-08-09] MEDS: RAMIPRIL 5 MG CAP PO SCH (08:45)
[2017-08-09] MEDS: THIAMINE HCL 100 MG TAB PO SCH (08:45)
[2017-08-09] MEDS: SPIRONOLACTONE 25 MG TAB PO SCH (08:46)
[2017-08-09] MEDS: PANTOPRAZOLE SOD 20 MG DELAYED RELEASE TAB PO SCH (08:46)
[2017-08-09] MEDS: CARVEDILOL 12.5 MG TAB PO SCH ×2 (08:47→22:05)
[2017-08-09] MEDS: CHOLECALCIFEROL (VIT D3) 400 UNIT TAB PO SCH (09:00)
[2017-08-09] MEDS: SODIUM CHLORIDE 0.9% FLUSH 10 ML FLUSH IV FLUSH SCH ×2 (09:00→21:00)
--- NOTE | 2017-08-09 09:01 | HHI.PYPN ---
Subjective Remarks Patient seen for follow-up, chart reviewed. Patient found sitting eating breakfast. Patient states that he had a little bit of the "shakes" last night and this morning patient received medication as evening states that he slept well. Patient reports his mood is "okay" denies any suicide ideations or perceptual disturbances. Patient states that he feels the medication has been helping his mood as well as the "tingling and numbness in my arm". Patient reports he states again about wanting to do after discharged but states that he first wants to focus on his recovery. Review of Systems Except as stated in HPI: all other systems reviewed are Neg Objective Alert: Yes [place]: Person, Place, Date Mood: Depressed Affect: Restricted Memory Intact: Comment (intact except for periods when he has been intoxicated) Hallucinations: Other Delusions: No Delusion Type: Other (none) Suicidal: Ideation (denies) Homicidal: Ideation (denies) Insight/Judgment Fair insight, impulse control and judgment Labs Labs reviewed. Test 08/08/17 10:12 White Blood Count 4.5 TH/MM3 Red Blood Count 4.72 MIL/MM3 Hemoglobin 17.6 GM/DL Hematocrit 49.5 % Mean Corpuscular Volume 105.0 FL Mean Corpuscular Hemoglobin 37.3 PG Mean Corpuscular Hemoglobin Concent 35.5 % Red Cell Distribution Width 12.7 % Platelet Count 123 TH/MM3 Mean Platelet Volume 8.7 FL Neutrophils (%) (Auto) 73.4 % Lymphocytes (%) (Auto) 12.3 % Monocytes (%) (Auto) 10.5 % Eosinophils (%) (Auto) 3.1 % Basophils (%) (Auto) 0.7 % Neutrophils # (Auto) 3.3 TH/MM3 Lymphocytes # (Auto) 0.6 TH/MM3 Monocytes # (Auto) 0.5 TH/MM3 Eosinophils # (Auto) 0.1 TH/MM3 Basophils # (Auto) 0.0 TH/MM3 CBC Comment DIFF FINAL Differential Comment Blood Urea Nitrogen 10 MG/DL Creatinine 0.91 MG/DL Random Glucose 102 MG/DL Total Protein 6.9 GM/DL Albumin 3.6 GM/DL Calcium Level 9.2 MG/DL Alkaline Phosphatase 120 U/L Aspartate Amino Transf (AST/SGOT) 65 U/L Alanine Aminotransferase (ALT/SGPT) 73 U/L Total Bilirubin 0.9 MG/DL Sodium Level 137 MEQ/L Potassium Level 3.6 MEQ/L Chloride Level 103 MEQ/L Carbon Dioxide Level 25.4 MEQ/L Anion Gap 9 MEQ/L Estimat Glomerular Filtration Rate 86 ML/MIN Hemoglobin A1c 5.0 % Triglycerides Level 133 MG/DL Cholesterol Level 174 MG/DL LDL Cholesterol 49 MG/DL HDL Cholesterol 98.9 MG/DL Cholesterol/HDL Ratio 1.75 RATIO Vitamin B12 Level 271 PG/ML 25-Hydroxy Vitamin D Total 24.5 ng/ML Thyroid Stimulating Hormone 3rd Gen 1.330 uIU/ML Vitals/IOs Vital Signs Date Time Temp Pulse Resp B/P (MAP) Pulse Ox O2 Delivery O2 Flow Rate FiO2 08/09/17 04:54 98.2 88 16 142/86 (104) 94 08/07/17 12:45 Room Air Intake and Output 08/09/17 08/09/17 08/10/17 08:00 16:00 00:00 Intake Total 240 ml Balance 240 ml Assessment & Plan Problem List: (1) Adjustment disorder with depressed mood ICD Codes: F43.21 - Adjustment disorder with depressed mood Status: Acute (2) Alcohol use disorder ICD Codes: F10.99 - Alcohol use, unspecified with unspecified alcohol-induced disorder Assessment & Plan Patient noted to be having improved mood, not endorsing suicidal ideations today. Patient continues on CIWA protocol, will continue to monitor for withdrawal. Continue current treatment. Monitor for medication response and adverse drug reactions. Patient continues to be interested in participating in inpatient rehabilitation program with treatment team is currently exploring options available. Discharge planning in progress Justification for Cont. Inpt. At risk for further decompensation if at lower level of care Cory Norris MD Aug 09, 2017 09:01
--- NOTE | 2017-08-09 09:01 | HHI.PR ---
Subjective Remarks Follow-up visit EtOH, suicidal ideation, HTN. Patient seen and examined today. Reports he is doing better. States his been eating well. Complaints of mild headache otherwise, denies pain and discomfort. Denies SOB/ dyspnea. Denies chest pain, palpitations. Denies fevers, chills, n/v/d. Objective Vitals Vital Signs Date Time Temp Pulse Resp B/P (MAP) Pulse Ox O2 Delivery O2 Flow Rate FiO2 08/09/17 04:54 98.2 88 16 142/86 (104) 94 08/08/17 17:29 98.1 87 18 140/90 (107) 96 I/O 08/08/17 08/08/17 08/08/17 08/09/17 08/09/17 08/09/17 07:00 15:00 23:00 07:00 15:00 23:00 Intake Total 240 ml 1200 ml 720 ml 240 ml Balance 240 ml 1200 ml 720 ml 240 ml Intake Oral 240 ml 1200 ml 720 ml 240 ml # Voids 1 1 1 Result Diagram: 08/08/17 1012 08/08/17 1012 Objective Remarks GENERAL: This is a well-nourished, well-developed patient, in no apparent distress. SKIN: No rashes, ecchymoses or lesions. Warm and dry. HEAD: Atraumatic. Normocephalic. EYES: Pupils equal round and reactive. Extraocular motions intact. No scleral icterus. No injection or drainage. ENT: Nose without bleeding. Throat without erythema. Airway patent. NECK: Trachea midline. CARDIOVASCULAR: Regular rate and rhythm without murmurs, gallops, or rubs. Left subclavian AICD incision site scar CDI. RESPIRATORY: Clear to auscultation. Breath sounds equal bilaterally. No wheezes , rales, or rhonchi. GASTROINTESTINAL: Abdomen soft, non-tender, nondistended. Bowel sounds active 4. MUSCULOSKELETAL: Extremities without clubbing, cyanosis, or edema. NEUROLOGICAL: Awake and alert. Mild bilateral hand tremors, improved. Motor and sensory grossly within normal limits. Normal speech. A/P Problem List: (1) Alcohol use disorder ICD Code: F10.99 - Alcohol use, unspecified with unspecified alcohol-induced disorder (2) Adjustment disorder with depressed mood ICD Code: F43.21 - Adjustment disorder with depressed mood Status: Acute (3) Suicide ideation ICD Code: R45.851 - Suicidal ideations Status: Acute (4) HTN (hypertension) ICD Code: I10 - Essential (primary) hypertension Status: Chronic Assessment and Plan Patient is a 56-year-old male with primary medical history of hypertension who came into the hospital requesting for alcohol detoxification. Admitted to medical psychiatry unit for further evaluation. Consulted for medical management. Suicidal ideation - Managed by psychiatry team EtOH - CIWA protocol - Folic acid, thiamine daily - Pantoprazole daily - Discussed with patient and nursing possible transition to [facility], we'll have case management facilitate. Elevated LFTs Transaminitis - Counselled on Alcohol use - Trend Liver enzymes - Ultrasound if continues to be elevated - Improving HTN History of [place] - Continue with home medication ramipril, Coreg, Aldactone - Monitor BP trend Vitamin D insuficiency - Start Vit D supplementation D3 400mg daily - Follow up levels in outpatient [id number] DVT prop ambulatory, low risk Discussed with patient, nursing, DrRin Gorman Aug 09, 2017 09:01
[2017-08-09 18:00] VITALS: BP 136/52; PULSE 86; RESP 17; TEMP 97.7; O2SAT 99
[2017-08-09] MEDS: LORazepam 1 MG TAB PO PRN (18:31)
[2017-08-10 06:00] VITALS: BP 138/87; PULSE 87; RESP 18; TEMP 97.5; O2SAT 96
[2017-08-10] MEDS: CHOLECALCIFEROL (VIT D3) 400 UNIT TAB PO SCH (08:05)
[2017-08-10] MEDS: PANTOPRAZOLE SOD 20 MG DELAYED RELEASE TAB PO SCH (08:05)
[2017-08-10] MEDS: CARVEDILOL 12.5 MG TAB PO SCH ×2 (08:05→20:28)
[2017-08-10] MEDS: DULoxetine HCl DR 20 MG CAP PO SCH ×2 (08:06→20:28)
[2017-08-10] MEDS: THIAMINE HCL 100 MG TAB PO SCH (08:06)
[2017-08-10] MEDS: FOLIC ACID 1 MG TAB PO SCH (08:06)
[2017-08-10] MEDS: ASPIRIN 81 MG CHEW TAB CHEW SCH (08:07)
[2017-08-10] MEDS: RAMIPRIL 5 MG CAP PO SCH (08:07)
[2017-08-10] MEDS: SODIUM CHLORIDE 0.9% FLUSH 10 ML FLUSH IV FLUSH SCH ×2 (09:00→21:00)
--- NOTE | 2017-08-10 09:13 | HHI.PYPN ---
Subjective Remarks Patient seen for follow-up, chart reviewed. Patient found sitting on a hospital chair eating breakfast as per nursing report patient last night and received some Ativan due to some anxiety but his CIWA score were less than 8. Patient states that he had difficulty sleeping last night due to feeling some anxiety. Patient stated that his mood is getting better although feeling a little anxious but denies any sad or depressed symptoms, denies any suicide ideations. He states feeling worried about these the need to do after he is discharged but is trying to focus on his recovery for now. Review of Systems Except as stated in HPI: all other systems reviewed are Neg Objective Alert: Yes [place]: Person, Place, Date Mood: Calm Affect: Restricted Memory Intact: Comment (intact except for periods when he has been intoxicated) Hallucinations: Other Delusions: No Delusion Type: Other (none) Suicidal: Ideation (denies) Homicidal: Ideation (denies) Insight/Judgment Fair insight, impulse control and judgment Vitals/IOs Vital Signs Date Time Temp Pulse Resp B/P (MAP) Pulse Ox O2 Delivery O2 Flow Rate FiO2 08/10/17 06:00 97.5 87 18 138/87 (104) 96 08/07/17 12:45 Room Air Assessment & Plan Problem List: (1) Adjustment disorder with depressed mood ICD Codes: F43.21 - Adjustment disorder with depressed mood Status: Acute (2) Alcohol use disorder ICD Codes: F10.99 - Alcohol use, unspecified with unspecified alcohol-induced disorder Assessment & Plan Patient continues to have improved mood and denies any suicidality at this time. Patient noted to be somewhat anxious but is able to met age without requiring medications at this time. Patient continues to be interested in participating inpatient rehabilitation program for substance use. Continue current treatment. Will add Benadryl 50 mg by mouth at bedtime when necessary insomnia. Discharge planning in progress Justification for Cont. Inpt. At risk for decompensation if at lower level of care Cory Norris MD Aug 10, 2017 09:13
[2017-08-10] MEDS ORDERED: diphenhydrAMINE HCL 50 MG CAP PO PRN (09:15)
[2017-08-10] MEDS: LORazepam 1 MG TAB PO PRN ×2 (09:20→20:28)
--- NOTE | 2017-08-10 11:47 | HHI.PR ---
Subjective Remarks Patient reports is feeling better. He is less shaky. He reports neuropathic pain for which he normally takes gabapentin. No other issues. Objective Vitals Vital Signs Date Time Temp Pulse Resp B/P (MAP) Pulse Ox O2 Delivery O2 Flow Rate FiO2 08/10/17 06:00 97.5 87 18 138/87 (104) 96 08/09/17 18:00 97.7 86 17 136/52 (80) 99 I/O 08/09/17 08/09/17 08/09/17 08/10/17 08/10/17 08/10/17 07:00 15:00 23:00 07:00 15:00 23:00 Intake Total 480 ml 960 ml Balance 480 ml 960 ml Intake Oral 480 ml 960 ml # Voids 1 2 1 Result Diagram: 08/08/17 1012 08/08/17 1012 Objective Remarks GENERAL: This is a well-nourished, well-developed patient, in no apparent distress. CARDIOVASCULAR: Normal rate and regular rhythm without murmurs, gallops, or rubs. RESPIRATORY: Good respiratory efforts. Breath sounds equal and clear to auscultation bilaterally. GASTROINTESTINAL: Abdomen soft, non-tender, non-distended. Normal active bowel sounds MUSCULOSKELETAL: Extremities without cyanosis, or edema. NEURO: Alert & Oriented x4 to person, place, time, situation. Moves all ext x4 PSYCH: Appropriate mood and affect. A/P Problem List: (1) Alcohol use disorder ICD Code: F10.99 - Alcohol use, unspecified with unspecified alcohol-induced disorder (2) Adjustment disorder with depressed mood ICD Code: F43.21 - Adjustment disorder with depressed mood Status: Acute (3) Suicide ideation ICD Code: R45.851 - Suicidal ideations Status: Acute (4) HTN (hypertension) ICD Code: I10 - Essential (primary) hypertension Status: Chronic Assessment and Plan 56-year-old male with primary medical history of hypertension who came into the hospital requesting for alcohol detoxification. Admitted to medical psychiatry unit for adjustment disorder with depressed mood and alcohol dependence for further evaluation. Hospitalist service consulted for medical management. Suicidal ideation - Managed by psychiatry team EtOH - CIWA protocol - Folic acid, thiamine daily - Pantoprazole daily -Patient is improving requiring only oral Ativan. He can probably be transitioned to the outpatient setting. Elevated LFTs Transaminitis - Counselled on Alcohol use -Liver enzymes trended down. HTN History of [place] - Continue with home medication ramipril, Coreg, [place] Vitamin D insuficiency - Start Vit D supplementation D3 400mg daily - Follow up levels in outpatient [id number] DVT prop ambulatory, low risk Discharge Planning Patient appear medically stable and can be discharged from a hospitalist standpoint. Further discharge planning per psychiatrist. Milan Scott MD Aug 10, 2017 11:46
[2017-08-10] MEDS: GABAPENTIN 300 MG CAP PO SCH ×2 (13:11→17:42)
[2017-08-11 05:04] VITALS: BP 144/80; PULSE 75; RESP 18; TEMP 97.7; O2SAT 96
--- NOTE | 2017-08-11 08:41 | HHI.PYPN ---
Subjective Remarks Patient seen for follow-up, chart reviewed. Patient found sitting on a hospital chair watching television, cooperative interview. As per nursing report was discussed the patient was feeling anxious last evening he received Ativan as a when necessary. Patient states he's been feeling "fair" although notes to having been anxious at night as he continues to think about what he'll be doing as he leaves the hospital. He states that his mood is "pretty good" denies feeling depressed denies any suicidal ideations and plans on going to possibly an inpatient relocation program called [facility] which his sister is currently helping him arrange. He stated that he spoke with his sister yesterday and states that she is pleased that he is getting better. At this time denies SI, HI, AVH or delusions. Review of Systems Except as stated in HPI: all other systems reviewed are Neg Objective Alert: Yes [place]: Person, Place, Date Mood: Calm Affect: Appropriate Memory Intact: Comment (intact except for periods when he has been intoxicated) Hallucinations: Other Delusions: No Delusion Type: Other (none) Suicidal: Ideation (denies) Homicidal: Ideation (denies) Insight/Judgment Fair insight, impulse control and judgment Vitals/IOs Vital Signs Date Time Temp Pulse Resp B/P (MAP) Pulse Ox O2 Delivery O2 Flow Rate FiO2 08/11/17 05:04 97.7 75 18 144/80 (101) 96 08/07/17 12:45 Room Air Intake and Output 08/11/17 08/11/17 08/12/17 08:00 16:00 00:00 Intake Total 0 ml 600 ml Balance 0 ml 600 ml Assessment & Plan Problem List: (1) Adjustment disorder with depressed mood ICD Codes: F43.21 - Adjustment disorder with depressed mood Status: Acute (2) Alcohol use disorder ICD Codes: F10.99 - Alcohol use, unspecified with unspecified alcohol-induced disorder Assessment & Plan Patient at this time continues to respond to current treatment, no longer noted to have withdrawal symptoms and mood has been stable with no recurrence of suicidal ideations. We'll discontinue CIWA protocol. Will start hydroxyzine 25 mg by mouth every 6 hours when necessary insomnia. Continue rest of medications, patient possibly will be accepted to the inpatient rehabilitation program called [facility] but will confirm tomorrow. Discharge planning in progress Justification for Cont. Inpt. At risk for further decompensation event lower level of care Cory Norris MD Aug 11, 2017 08:41
[2017-08-11] MEDS: CARVEDILOL 12.5 MG TAB PO SCH ×2 (09:00→21:57)
[2017-08-11] MEDS: THIAMINE HCL 100 MG TAB PO SCH (09:00)
[2017-08-11] MEDS ORDERED: hydrOXYzine HCL 25 MG TAB PO PRN (09:00)
[2017-08-11] MEDS: RAMIPRIL 5 MG CAP PO SCH (09:00)
[2017-08-11] MEDS: ASPIRIN 81 MG CHEW TAB CHEW SCH (09:00)
[2017-08-11] MEDS: FOLIC ACID 1 MG TAB PO SCH (09:00)
[2017-08-11] MEDS: SODIUM CHLORIDE 0.9% FLUSH 10 ML FLUSH IV FLUSH SCH ×2 (09:00→21:00)
[2017-08-11] MEDS: CHOLECALCIFEROL (VIT D3) 400 UNIT TAB PO SCH (09:00)
[2017-08-11] MEDS: GABAPENTIN 300 MG CAP PO SCH ×3 (09:00→17:50)
[2017-08-11] MEDS: DULoxetine HCl DR 20 MG CAP PO SCH ×2 (09:00→21:56)
[2017-08-11] MEDS: SPIRONOLACTONE 25 MG TAB PO SCH (09:00)
[2017-08-11] MEDS: PANTOPRAZOLE SOD 20 MG DELAYED RELEASE TAB PO SCH (09:00)
--- NOTE | 2017-08-11 11:38 | HHI.PR ---
Subjective Remarks Follow up on patient with alcoholism, transaminitis, hypertension. Patient seen and examined. Patient states he is doing better. Reports less shakiness. States he has some anxiety. Denies any auditory or visual hallucinations. Denies any fever or chills. Denies any heart palpitations. Denies any diarrhea. Discussed with Apolonia AVALOS - no acute issues except to discontinue blood sugar checks as patient is not diabetic. Objective Vitals Vital Signs Date Time Temp Pulse Resp B/P (MAP) Pulse Ox O2 Delivery O2 Flow Rate FiO2 08/11/17 05:04 97.7 75 18 144/80 (101) 96 I/O 08/10/17 08/10/17 08/10/17 08/11/17 08/11/17 08/11/17 07:00 15:00 23:00 07:00 15:00 23:00 Intake Total 120 ml 0 ml 600 ml Balance 120 ml 0 ml 600 ml Intake Oral 120 ml 0 ml 600 ml # Voids 1 1 Result Diagram: 08/08/17 1012 08/08/17 1012 Objective Remarks GENERAL: This is a well-nourished, well-developed patient, in no apparent distress. Sitting up in hospital bed watching TV. Awake and alert. Appears comfortable. SKIN: Warm and dry. HEAD: Atraumatic. Normocephalic. EYES: Extraocular motions intact. No scleral icterus. No injection or drainage. ENT: Nose without bleeding. Throat without erythema. Airway patent. NECK: Trachea midline. CARDIOVASCULAR: Regular rate and rhythm without murmurs, gallops, or rubs. Left subclavian AICD incision site scar CDI. RESPIRATORY: Clear to auscultation. Breath sounds equal bilaterally. No wheezes , rales, or rhonchi. GASTROINTESTINAL: Abdomen soft, non-tender, nondistended. Bowel sounds active 4. MUSCULOSKELETAL: Extremities without clubbing, cyanosis, or edema. NEUROLOGICAL: Awake and alert. No tremors appreciated. Motor and sensory grossly within normal limits. Normal speech. Medications and IVs Current Medications Medications (Trade) Dose Ordered Sig/Julian Route Start Time Stop Time Status Last Admin (Tylenol) 650 mg Q4H PRN PO 08/07/17 11:30 08/10/17 20:36 (Milk Of Magnesia Liq) 30 ml DAILY PRN PO 08/07/17 11:30 (Mag-Al Plus Susp Liq) 30 ml Q6H PRN PO 08/07/17 11:30 (NS Flush) 2 ml UNSCH PRN IV FLUSH 08/07/17 11:30 (NS Flush) 2 ml BID IV FLUSH 08/07/17 21:00 (Romazicon Inj) 0.2 mg Q1M PRN IV PUSH 08/07/17 11:30 (Ativan) 1 mg Q4H PRN PO 08/07/17 11:30 08/10/17 20:28 (Aspirin Chew) 81 mg DAILY CHEW 08/08/17 09:00 08/11/17 09:00 (Coreg) 25 mg BID PO 08/07/17 21:00 08/11/17 09:00 (Altace) 5 mg DAILY PO 08/08/17 09:00 08/11/17 09:00 (Aldactone) 25 mg EVERY OTHER DAY PO 08/09/17 09:00 08/11/17 09:00 (Folate) 1 mg DAILY PO 08/08/17 10:00 08/11/17 09:00 (Vitamin B1) 100 mg DAILY PO 08/08/17 10:00 08/11/17 09:00 (Protonix) 20 mg DAILY PO 08/08/17 10:00 08/11/17 09:00 (Cymbalta Dr) 20 mg BID PO 08/08/17 12:15 08/11/17 09:00 (Vitamin D3) 400 units DAILY PO 08/09/17 09:00 08/11/17 09:00 (Benadryl) 50 mg HS PRN PO 08/10/17 09:15 (Neurontin) 600 mg TID PO 08/10/17 13:00 08/11/17 09:00 (Atarax) 25 mg Q6H PRN PO 08/11/17 09:00 A/P Problem List: (1) Alcohol use disorder ICD Code: F10.99 - Alcohol use, unspecified with unspecified alcohol-induced disorder (2) Adjustment disorder with depressed mood ICD Code: F43.21 - Adjustment disorder with depressed mood Status: Acute (3) Suicide ideation ICD Code: R45.851 - Suicidal ideations Status: Acute (4) HTN (hypertension) ICD Code: I10 - Essential (primary) hypertension Status: Chronic Assessment and Plan Patient is a 56-year-old male with primary medical history of hypertension who came into the hospital requesting for alcohol detoxification. Admitted to medical psychiatry unit for further evaluation. Consulted for medical management. Suicidal ideation - Managed by psychiatry team EtOH - CIWA protocol - CIWA has been 0 per RN - Folic acid, thiamine daily - Pantoprazole daily - Patient is improving requiring only oral Ativan. He can probably be transitioned to the outpatient setting. - Primary team planning for possible placement at [facility] an inpatient rehabilitation program Elevated LFTs Transaminitis - Counselled on Alcohol use - liver enzymes trending down HTN History of [place] - No complaints of chest pain - Continue ASA daily - Continue with home medication ramipril, Coreg, Aldactone - Monitor BP trend Vitamin D insufficiency - Continue Vit D supplementation D3 400mg daily - Follow up levels in outpatient [id number] Macrocytosis - Secondary to alcohol abuse Neuropathy - Continue patient on home dose of Gabapentin 600mg TID DVT prop ambulatory, low risk Discussed with patient, Apolonia AVALOS and Dr. Scott Discharge Planning Patient appear medically stable and can be discharged from a hospitalist standpoint. Further discharge planning per psychiatrist. Susana Mccarthy Aug 11, 2017 11:38
[2017-08-11 18:00] VITALS: BP 152/73; PULSE 76; RESP 18; TEMP 98.3; O2SAT 97
[2017-08-12 05:06] VITALS: BP 137/79; PULSE 77; RESP 18; TEMP 97.3; O2SAT 96
[2017-08-12] MEDS: GABAPENTIN 300 MG CAP PO SCH (08:43)
[2017-08-12] MEDS: FOLIC ACID 1 MG TAB PO SCH (08:44)
[2017-08-12] MEDS: DULoxetine HCl DR 20 MG CAP PO SCH (08:44)
[2017-08-12] MEDS: ASPIRIN 81 MG CHEW TAB CHEW SCH (08:44)
[2017-08-12] MEDS: RAMIPRIL 5 MG CAP PO SCH (08:44)
[2017-08-12] MEDS: THIAMINE HCL 100 MG TAB PO SCH (08:44)
[2017-08-12] MEDS: PANTOPRAZOLE SOD 20 MG DELAYED RELEASE TAB PO SCH (08:44)
[2017-08-12] MEDS: CHOLECALCIFEROL (VIT D3) 400 UNIT TAB PO SCH (08:48)
[2017-08-12] MEDS: CARVEDILOL 12.5 MG TAB PO SCH (08:48)
[2017-08-12] MEDS: SODIUM CHLORIDE 0.9% FLUSH 10 ML FLUSH IV FLUSH SCH (09:00)
[2017-08-12] MEDS ORDERED: FOLI1TAB6 PO (09:27)
[2017-08-12] MEDS ORDERED: ASPI81CH25 CHEW (09:27)
[2017-08-12] MEDS ORDERED: SPIR25 PO (09:27)
[2017-08-12] MEDS ORDERED: RAMI5CAP PO (09:27)
[2017-08-12] MEDS ORDERED: GABA600T PO (09:27)
[2017-08-12] MEDS ORDERED: GNP100TA3 PO (09:27)
[2017-08-12] MEDS ORDERED: VITD400 PO (09:27)
[2017-08-12] MEDS ORDERED: DULO20 PO (09:27)
[2017-08-12] MEDS ORDERED: PANT20 PO (09:27)
[2017-08-12] MEDS ORDERED: CARV25TA PO (09:27)
--- NOTE | 2017-08-12 09:46 | HHI.DS ---
Psychiatry Discharge Summary Inpatient Psychiatric care?: Yes Advance Directive: No Reason Not Provided: Due to Patient Condition Mental Health AdvanceDirective: No Health Care Proxy: No Admission Admission Date Aug 07, 2017 at 11:30 Admission Diagnosis: (1) Adjustment disorder with depressed mood ICD Code: F43.21 - Adjustment disorder with depressed mood (2) Alcohol use disorder ICD Code: F10.99 - Alcohol use, unspecified with unspecified alcohol-induced disorder Brief History 56-year-old male presents voluntarily with multiple symptoms of depression and suicidality with plan. Patient has been thinking of shooting himself over the last several weeks and became so concerned, he gave his gun to his . Patient continues to have suicidal thoughts intermittently and unpredictably. He would like treatment for his depressive symptoms. Stressors at this time are financial, unemployment, marital discord, etc. Patient presents with a 3 month history of symptoms including depressed mood, anhedonia, diminished energy , anxiety, insomnia, appetite loss, feeling hopeless and helpless, diminished self-esteem, social withdrawal, diminished concentration, and suicidal ideation with plan. Patient has been drinking intermittently to self medicate his symptoms of depression and anxiety and it is not working but rather making his depression worse. Patient reports he is unable to contract for safety at this time. Tobacco Use In Past 30 Days: 5 or More Cigarettes/Day Alcohol Use: Never Hospital Course Patient is a 56-year-old man , unemployed, domiciled with with a past psychiatric history of depression and alcohol use disorder with no previous psychiatric hospitalizations no previous suicide attempt or self- injurious behavior was brought to the ED for feeling depressed and suicidal ideation with plan to shoot himself in the context of multiple psychosocial stressors and worsening depressive symptoms for the past 3 months along with increasing use of alcohol. Patient was admitted to the inpatient psychiatry unit where he was started on CIWA protocol for alcohol withdrawal, started on Duloxetine 20mg PO BID for depression. Patient continued to have improvement of mood, denied any recurrence of suicidal ideation and cleared from any withdrawal symptoms. Upon discharge patient stated feeling motivated to continue onto rehabilitation program for alcohol use which he will attend intake at [facility] for the same and in the interim will attend outpatient rehab to maintain sobriety. He agrees to continue treatment and attend outpatient follow up appointments for continuity of care. Patient denies SI, HI, AVH or delusions. Supportive psychotherapy provided. Patient advised to return to ED or call 911 in case of emergency. Patient agrees with plan. Results Blood Pressure 137 / 79 Vital Signs Date Time Temp Pulse Resp B/P (MAP) Pulse Ox O2 Delivery O2 Flow Rate FiO2 08/12/17 05:06 97.3 77 18 137/79 (98) 96 Laboratory Results Test 08/08/17 10:12 Cholesterol Level 174 MG/DL (120-200) HDL Cholesterol 98.9 MG/DL (40.0-60.0) Hemoglobin A1c 5.0 % (4.3-6.0) LDL Cholesterol 49 MG/DL (0-99) Triglycerides Level 133 MG/DL (42-150) Summary of Procedures none Pending results at discharge: No Medications # of Antipsychotic meds at D/C: 0 Approp Antipsych med options 1 - Minimum of three failed multiple trials of monotherapy. 2 - Documented plan to taper to monotherapy due to previous use of multiple meds OR cross-taper in progress at D/C. 3 - Documentation of augmentation of Clozapine. 4 - Justification other than those listed in allowable values 1-3, document here : Discharge Discharge Date: Aug 12, 2017 Discharge Diagnosis: (1) Adjustment disorder with depressed mood Diagnosis: Principal ICD Code: F43.21 - Adjustment disorder with depressed mood Status: Acute (2) Alcohol use disorder Diagnosis: Secondary ICD Code: F10.99 - Alcohol use, unspecified with unspecified alcohol-induced disorder Mental Status Exam at Disch Appearance/Behavior: appears stated age, fair hygiene and grooming, in casual clothing, calm and cooperative, fair eye contact Speech: normal rate, tone and prosody Mood: good Affect: euthymic TP: linear, future oriented TC: denies SI, HI, AVH or delusions Insight/Impulse control/ Judgment: fair Pt Condition on Discharge: Stable Discharge Disposition: Discharge Home Discharge Instructions Diet Instructions: Heart Healthy Diet Activities you can perform: Regular-No Restrictions Discharge Time > 30 minutes Discharge/Advance Care Plan Health Problems: (1) Adjustment disorder with depressed mood (2) Alcohol use disorder Goals to promote your health * To prevent worsening of your condition and complications * To maintain your health at the optimal level Directions to meet your goals Take your medications as prescribed Follow your dietary instruction Follow activity as directed Keep your appointments as scheduled Take your immunizations and boosters as scheduled If your symptoms worsen call your PCP, if no PCP go to Urgent Care Center or Emergency Room For 03/06 questions related to your inpatient stay or results of tests pending at discharge, please contact Dr. Cory Norris at Smoking is Dangerous to Your Health. Avoid second hand smoking Cory Norris MD Aug 12, 2017 09:46
== END 2017-08-12 11:00 | disposition home or self-care (01) | DRG 881 ==
LOC: NEPD 16:36 → NEDA 08-07 11:30 → H4EA 08-07 13:00
PROVIDERS: ADMIT Student in an Organized Health Care Education/Training Program; ATTEND Student in an Organized Health Care Education/Training Program
DX: F43.21 Adjustment disorder with depressed mood (principal); R45.851 Suicidal ideations; F10.94 Alcohol use, unspecified with alcohol-induced mood disorder; G62.9 Polyneuropathy, unspecified; I10 Essential (primary) hypertension; F41.9 Anxiety disorder, unspecified; G47.00 Insomnia, unspecified; Y90.8 Blood alcohol level of 240 mg/100 ml or more; I25.2 Old myocardial infarction; R51 Headache; E55.9 Vitamin D deficiency, unspecified; D75.89 Other specified diseases of blood and blood-forming organs
CPT/HCPCS: 80053; 80061; 80307; 82306; 82607; 82948; 83036; 84443; 85007; 85025; 85027; 93005